=== PATIENT | female | born 1985 | race Caucasian/White ===

== ENCOUNTER 2023-03-10 15:30 | Outpatient (CLI) | payer OTHER ==
--- NOTE | 2023-03-10 16:22 | XRAY Report ---
PROCEDURE: Ankle 2 View LT INDICATIONS: SPRAIN OF UNSPECIFIED LIGAMENT OF LEFT ANKLE TECHNIQUE: 2 views of the ankle were acquired. COMPARISON: None. FINDINGS: Bones: Comminuted fracture of the distal fibula with minimal displacement. Ankle mortise is normally aligned. No widening of the medial clear space. No suspicious bony lesions. Soft tissues: No tibiotalar joint effusion. Achilles tendon appears normal. IMPRESSION: Comminuted minimally displaced fracture of the distal fibula. Reviewed by: Josiah Antonio MD on 03/10/2023 4:21 PM PDT Approved by: Josiah Antonio MD on 03/10/2023 4:21 PM PDT Station ID: [id number]
== END 2023-03-10 15:31 | disposition home or self-care (01) ==
LOC: DI 15:30
PROVIDERS: ATTEND Specialist
DX: S93.402A Sprain of unspecified ligament of left ankle, initial encounter (principal); S82.832A Other fracture of upper and lower end of left fibula, initial encounter for closed fracture

== ENCOUNTER 2023-03-20 08:00 | Outpatient (CLI) | payer OTHER ==
--- NOTE | 2023-03-21 11:18 | XRAY Report ---
PROCEDURE: Ankle 3 View LT INDICATIONS: LEFT ANKLE PAIN TECHNIQUE: 3 views of the ankle were acquired. COMPARISON: 03/10/2023 FINDINGS: Bones: Minimally displaced comminuted fracture of the distal fibular again seen. No interval movement . Mild progress toward healing. Soft tissues: Soft tissue swelling persists. IMPRESSION: Mildly comminuted distal fibular fracture with some progress toward healing. Reviewed by: Guille Curran MD on 03/21/2023 11:16 AM PDT Approved by: Guille Curran MD on 03/21/2023 11:16 AM PDT Station ID: [id number]
== END 2023-03-20 23:59 | disposition home or self-care (01) ==
LOC: DI.WOS 08:00
PROVIDERS: ATTEND Orthopaedic Surgery
DX: S82.452A Displaced comminuted fracture of shaft of left fibula, initial encounter for closed fracture (principal)

== ENCOUNTER 2023-04-17 08:00 | Outpatient (CLI) | payer OTHER ==
--- NOTE | 2023-04-17 16:50 | XRAY Report ---
PROCEDURE: Ankle 3 View LT INDICATIONS: LEFT ANKLE FRACTURE TECHNIQUE: 3 views of the ankle were acquired. COMPARISON: 03/20/2023. FINDINGS: Bones: Again noted is a comminuted oblique fracture in near-anatomic alignment involving the distal left fibula which appears unchanged. No new acute osseous abnormality is seen. Ankle mortise is lazaro lly aligned. No suspicious bony lesions. Soft tissues: No tibiotalar joint effusion. Achilles tendon appears normal. IMPRESSION: 1. Stable unchanged appearance of the oblique comminuted fracture involving the distal left fibula in near-anatomic alignment. 2. No new acute osseous abnormality seen. Reviewed by: Darrell Baldwin MD on 04/17/2023 4:49 PM PST Approved by: Darrell Baldwin MD on 04/17/2023 4:49 PM PST Station ID: [id number]
== END 2023-04-17 23:59 | disposition home or self-care (01) ==
LOC: DI.WOS 08:00
PROVIDERS: ATTEND Orthopaedic Surgery
DX: S82.65XD Nondisplaced fracture of lateral malleolus of left fibula, subsequent encounter for closed fracture with routine healing (principal)